=== PATIENT | male | born 1990 | race Caucasian/White ===

== ENCOUNTER 2017-10-08 12:54 | Emergency (ER) | payer OTHER ==
[~2017-10-08] VITALS: Ht 165.1 cm; Wt 81.7 kg
[2017-10-08] MEDS ORDERED: NAPROSYN500 MG PO (14:37)
[2017-10-08] MEDS ORDERED: KEFLEX500 M1 PO (14:37)
== END 2017-10-08 14:57 | disposition home or self-care (01) ==
LOC: ER 12:54
DX: S61.411A Laceration without foreign body of right hand, initial encounter (principal); X58.XXXA Exposure to other specified factors, initial encounter; Y93.89 Activity, other specified; Y92.89 Other specified places as the place of occurrence of the external cause; Y99.0 Civilian activity done for income or pay